=== PATIENT | female | born 1960 | race Caucasian/White ===

== ENCOUNTER 2023-04-26 01:09 | Emergency (ER) | payer OTHER ==
[~2023-04-26] VITALS: Ht 160 cm; Wt 62.1 kg
[2023-04-26 01:09] VITALS: BP 159/87; PULSE 80; RESP 17; TEMP 98.1; O2SAT 99
[2023-04-26] MEDS ORDERED: FLUORESCEIN OPTH STRIP 1 MG OP ONE (01:35)
[2023-04-26] MEDS ORDERED: TETRACAINE HCL/PF 0.5% OPTH 4 ML BTL OP ONE (02:05)
[2023-04-26] MEDS ORDERED: ERYT5OIN58 OP (03:47)
== END 2023-04-26 04:10 | disposition home or self-care (01) ==
LOC: MED 01:09
DX: H57.89 Other specified disorders of eye and adnexa (principal); Z79.2 Long term (current) use of antibiotics; Z88.0 Allergy status to penicillin
CPT/HCPCS: 99283